=== PATIENT | male | born 1955 | race Caucasian/White ===

== ENCOUNTER 2018-06-13 10:17 | Day surgery (SDC) | payer BC ==
[2018-06-12 08:32] VITALS: BMI 32.5
[2018-06-13] MEDS ORDERED: PROPOFOL 20 ML ONE ×3 (10:43→11:12)
[2018-06-13 11:52] VITALS: PULSE 89; TEMP 98.1
[2018-06-13 12:10] VITALS: BP 126/74
--- NOTE | 2018-06-18 14:42 | PATH ---
Surgical Pathology Report Patient Name: SOCORRO PETERS [facility]. Rec. #: [id number] /Age/Gender: 1955 (Age: 63) / M Account: [id number] Location: [facility] Taken: 06/13/2018 Received: 06/13/2018 Reported: 06/18/2018 Physicians: Venecia Garcia M.D. Specimen(s) Received A: BX SECOND PORTION OF DUODENUM B: BX DUODENAL BULB THICK FOLD C: BX ANTRUM D: BX FUNDUS POLYP E: BX GE JUNCTION F: BX TRANSVERSE COLON ERYTHEMATOUS PATCH G: BX 50 CM ERYTHMATAS PATCH H: SIGMOID COLON R/O COLITIS Clinical History GI bleed Postoperative diagnosis: Gastric, duodenitis, fundus polyp, duodenal polyp, hemorrhoids, diverticuli, colitis Final Diagnosis A. SECOND PORTION OF DUODENUM, BIOPSY: MODERATE CHRONIC DUODENITIS. B. DUODENAL BULB, THICK FOLD, BIOPSY: DUODENAL MUCOSA SHOWING GASTRIC HETEROTOPIA WITH MODERATE CHRONIC DUODENITIS. C. ANTRUM, BIOPSY: MODERATE CHRONIC GASTRITIS. IMMUNOSTAIN IS NEGATIVE FOR H PYLORI ORGANISMS. D. FUNDUS POLYP, BIOPSY: GASTIC FUNDIC GLAND POLYP. IMMUNOSTAIN IS NEGATIVE FOR H PYLORI ORGANISMS. E. GE JUNCTION, BIOPSY: GASTRIC CARDIA-TYPE MUCOSA SHOWING MILD CHRONIC INFLAMMATION. NO ESOPHAGEAL (SQUAMOUS) MUCOSA IS IDENTIFIED. NEGATIVE FOR INTESTINALMETAPLASIA. F. TRANSVERSE COLON ERYTHEMATOUS PATCH, BIOPSY: MODERATE CHRONIC ACTIVE COLITIS WITH MILD CRYPT ARCHITECTURAL DISTORTION. (SEE NOTE) NEGATIVE FOR DYSPLASIA. G. ERYTHEMATOUS PATCH AT 50 CM, BIOPSY: FOCAL ACTIVE COLITIS. (SEE NOTE) H. SIGMOID COLON R/O COLITIS, BIOPSY: MODERATE CHRONIC ACTIVE COLITIS WITH MILD CRYPT ARCHITECTURAL DISTORTION. (SEE NOTE). NEGATIVE FOR DYSPLASIA. Note: The findings in specimens F, G and H are compatible with chronic inflammatory bowel disease in the appropriate clinical setting. Correlation with clinical findings and appropriate follow-up is suggested. Electronically Signed Kristine Vance M.D. Gross Description A. Received in formalin, labeled "second portion of duodenum" is a goff, irregular portion of soft tissue measuring 0.4 cm. in greatest dimension. The specimen is submitted in toto in one cassette. B. Received in formalin, labeled "duodenal bulb polyp" is a goff, irregular portion of soft tissue measuring 0.5 cm. in greatest dimension. The specimen is submitted in toto in one cassette. C. Received in formalin, labeled "antrum" is a goff, irregular portion of soft tissue measuring 0.5 cm. in greatest dimension. The specimen is submitted in toto in one cassette. D. Received in formalin, labeled "fundus polyp" is a goff, irregular portion of soft tissue measuring 0.4 cm. in greatest dimension. The specimen is submitted in toto in one cassette. E. Received in formalin, labeled "GE junction" is a goff, irregular portion of soft tissue measuring 0.4 cm. in greatest dimension. The specimen is submitted in toto in one cassette. F. Received in formalin, labeled "transverse colon erythematous patch" is a goff, irregular portion of soft tissue measuring 0.2 cm. in greatest dimension. The specimen is submitted in toto in one cassette. G. Received in formalin, labeled "erythematous patch at 50 cm" is a goff, irregular portion of soft tissue measuring 0.4 cm. in greatest dimension. The specimen is submitted in toto in one cassette. H. Received in formalin, labeled "sigmoid colon r/o colitis" are 2 goff, irregular portions of soft tissue measuring 0.2 and 0.4 cm. in greatest dimension. The specimens are submitted in toto in one cassette. 06/14/2018 saudi06/14/2018
== END 2018-06-13 12:15 | disposition home or self-care (01) ==
LOC: FASU-ENDO 10:17
PROVIDERS: ATTEND Internal Medicine Gastroenterology
PROC: 0DB68ZX Excision of Stomach, Via Natural or Artificial Opening Endoscopic, Diagnostic (ICD-10-PCS; 2018-06-13)
PROC: 0DB48ZX Excision of Esophagogastric Junction, Via Natural or Artificial Opening Endoscopic, Diagnostic (ICD-10-PCS; 2018-06-13)
PROC: 0DBN8ZX Excision of Sigmoid Colon, Via Natural or Artificial Opening Endoscopic, Diagnostic (ICD-10-PCS; 2018-06-13)
PROC: 0DBL8ZX Excision of Transverse Colon, Via Natural or Artificial Opening Endoscopic, Diagnostic (ICD-10-PCS; 2018-06-13)
PROC: 0DB98ZX Excision of Duodenum, Via Natural or Artificial Opening Endoscopic, Diagnostic (ICD-10-PCS; principal; 2018-06-13 10:30)
DX: K29.50 Unspecified chronic gastritis without bleeding (principal); K29.80 Duodenitis without bleeding; K31.7 Polyp of stomach and duodenum; K52.9 Noninfective gastroenteritis and colitis, unspecified; K64.9 Unspecified hemorrhoids; K57.30 Diverticulosis of large intestine without perforation or abscess without bleeding
CPT/HCPCS: 88305-TC; 88342-TC

== ENCOUNTER 2019-01-22 10:25 | Inpatient (IN) | payer BC ==
[2019-01-07 12:24] VITALS: BMI 30.7
--- NOTE | 2019-01-22 08:07 | HP ---
Satellite [facility] - Chief Complaint Chief Complaint: left hip pain - Past Medical History Allergies/Adverse Reactions: Allergies Allergy/AdvReac Type Severity Reaction Status Date / Time No Known Allergies Allergy Verified 06/11/18 14:24 - Current Medications Current Medications: Home Medications Medication Instructions Recorded Folic Acid - 2 mg PO DAILY 07/27/12 Multivitamin with Minerals 1 each PO DAILY 07/27/12 [Multiple Vitamin] Rosuvastatin Calcium [Crestor] 10 mg PO DAILY 07/27/12 Budesonide/Formeterol Fumarate 1 inh PO BID PRN 06/12/18 [SYMBICORT 80/4.5mcg -] Rivaroxaban [Xarelto] 20 mg PO DAILY 06/12/18 Zolpidem Tartrate [Ambien] 10 mg PO HS PRN 06/12/18 Amlodipine Besylate [Norvasc -] 5 mg PO DAILY 01/09/19 Fluticasone/Umeclidin/Vilanter 1 each IH DAILY 01/09/19 [Trelegy Ellipta 100-62.5-25] Mesalamine [Lialda] 1.2 gm PO DAILY 01/09/19 Naproxen Sodium [Aleve] 220 mg PO TID 01/09/19 Phentermine HCl 37.5 mg PO DAILY 01/09/19 Propranolol HCl [Propranolol HCl 120 mg PO DAILY 01/09/19 ER] Sennosides/Docusate Sodium [Senna 1 each PO BID 01/09/19 Plus Tablet] Silodosin [Rapaflo] 8 mg PO DAILY 01/09/19 Tofacitinib Citrate [Xeljanz] 10 mg PO BID 01/09/19 Satellite Physical Exam - Physical Examination General Appearance: Well Nourished, Well Developed, Alert & Oriented x3 ENT: Clear Lung: Normal air movement Heart: Regular rate & rhythm Extremities: Other (left hip- + ttp, decr rom, nvi, xrays show grade 4 hip djd) Neurological: Intact, Alert, Oriented Satellite Impression/Plan - Impression/Plan Impression: left hip djd Operative Procedure: left maeve thr Date to be Performed: 01/22/19
[2019-01-22] MEDS ORDERED: LIDOCAINE HCL/PF 2% SDV 5ML VIAL ONE (10:27)
[2019-01-22] MEDS ORDERED: ONDANSETRON 4 MG/2 ML VIAL ONE (10:27)
[2019-01-22] MEDS ORDERED: DEXAMETHASONE SOD PHOSPHATE 4 MG/1 ML VIAL ONE ×2 (10:27→12:42)
[2019-01-22] MEDS ORDERED: GABAPENTIN 300 MG CAPSULE (FP) PO ONE ×2 (10:35→10:45)
[2019-01-22] MEDS ORDERED: CELECOXIB 200 MG CAPSULE PO ONE ×2 (10:35→10:45)
[2019-01-22] MEDS ORDERED: CEFAZOLIN 2 GM in DEXTROSE 5%-WATER - 50 ML IVPB ONE (10:35)
[2019-01-22] MEDS ORDERED: oxyCODONE HCL 10 MG SUSTAINED ACTING TABLET PO ONE ×2 (10:35→10:45)
[2019-01-22] MEDS ORDERED: TRANEXAMIC ACID 1000 MG/10 ML VIAL IVPUSH ONE (10:35)
[2019-01-22] MEDS ORDERED: PHENYLEPHRINE HCL 10 MG/1 ML SINGLE DOSE VIAL ONE (10:41)
[2019-01-22] MEDS ORDERED: PROPOFOL 20 ML ONE (11:05)
[2019-01-22] MEDS ORDERED: MIDAZOLAM HCL 2 MG/2 ML SINGLE DOSE VIAL ONE ×2 (11:09→12:37)
[2019-01-22] MEDS ORDERED: DEXAMETHASONE SOD PHOSPHATE/PF 10 MG/ML SDV ONE (11:10)
[2019-01-22] MEDS ORDERED: BUPIVACAINE HCL/PF 0.5% (5MG/ML) 10 ML VIAL ONE (11:10)
[2019-01-22] MEDS ORDERED: ONDANSETRON 4 MG/2 ML VIAL IVPUSH PRN ×2 (11:28→14:06)
[2019-01-22] MEDS ORDERED: MAGNESIUM HYDROX 2400MG/30ML ORAL SUSPENSION 30 ML CUP PO PRN (11:28)
[2019-01-22] MEDS ORDERED: MAG HYDROX/AL HYDROX/SIMETH 30 ML UNIT-DOSE CUP PO PRN (11:28)
[2019-01-22] MEDS ORDERED: LACTATED RINGERS SOLUTION 1,000 ML IV SCH ×2 (11:30→14:15)
[2019-01-22] MEDS ORDERED: ceFAZolin SODIUM 1 GM VIAL ONE (11:58)
[2019-01-22] MEDS ORDERED: VANCOMYCIN 1,000 MG VIAL (RESTRICTED TO ID ONLY) ONE (11:58)
[2019-01-22] MEDS ORDERED: KETOROLAC TROMETHAMINE 30 MG/1 ML VIAL ONE (12:42)
[2019-01-22] MEDS ORDERED: ePHEDrine SULFATE 50 MG/1 ML AMPULE ONE (13:10)
[2019-01-22] MEDS ORDERED: VANCOMYCIN 1,000 MG VIAL (RESTRICTED TO ID ONLY) IVPB ONE (13:28)
--- NOTE | 2019-01-22 13:49 | OP ---
Operative Note - Note: Operative Date: 01/22/19 (carlos) Pre-Operative Diagnosis: left hip djd Operation: left maeve thr Post-Operative Diagnosis: Same as Pre-op Surgeon: Jd King Rental Coordinator: Lloyd Hernández Anesthesiologist/MARINE SERVICE MANAGER: Jermain Acuna Anesthesia: Spinal, Local Specimens Removed: femoral head Estimated Blood Loss (mls): 100 Operative Report Dictated: Yes
[2019-01-22] MEDS ORDERED: oxyCODONE HCL 5 MG TABLET PO PRN (14:06)
[2019-01-22] MEDS: ACETAMINOPHEN 1000 MG/100 ML VIAL (NON FORMULARY) IVPB ONE ×2 (14:18→15:20)
[2019-01-22] MEDS ORDERED: ALBUTEROL SO4 2.5/IPRATROPIUM 0.5 INH SOL 3 ML VIAL.NEB. NEB PRN (18:22)
--- NOTE | 2019-01-22 18:22 | PN ---
Progress Note, Physician Chief Complaint: PATIENT SEEN POST OP LEFT HIP REPLACEMENT H/O DVT CHRONIC, COPD, HTN, OBESITY, RA, BPH, CONSTIPATION, HTN. AWAKE ALERT NAD EATING DINNER - Current Medication List Current Medications: Active Medications Al Hydroxide/Mg Hydroxide (Mylanta Oral Suspension -) 30 ml PO Q4H PRN PRN Reason: DYSPEPSIA Amlodipine Besylate (Norvasc -) 5 mg PO DAILY [facility] Budesonide/Formoterol Fumarate (Symbicort 80/4.5mcg -) 1 puff IH BID PRN PRN Reason: ASTHMA Fentanyl (Sublimaze Injection -) 50 mcg IVPUSH Q5M PRN PRN Reason: PAIN-PACU ORDER X 4 DOSES ONLY Cefazolin Sodium/Dextrose (Ancef 2 Gm Premixed Ivpb -) 2 gm in 50 mls @ 100 mls /hr IVPB Q8H [facility] Stop: 01/23/19 04:29 Lactated Ringer's (Lactated Ringers Solution) 1,000 mls @ 125 mls/hr IV ASDIR [facility] Stop: 01/23/19 06:00 Last Admin: 01/22/19 15:19 Dose: Not Given Lactated Ringer's (Lactated Ringers Solution) 1,000 mls @ 75 mls/hr IV ASDIR [facility] Last Admin: 01/22/19 15:20 Dose: Not Given Magnesium Hydroxide (Milk Of Magnesia -) 30 ml PO PRN PRN PRN Reason: CONSTIPATION Multivitamins/Minerals (Theragran-M) 1 each PO DAILY [facility] Ondansetron HCl (Zofran Injection) 4 mg IVPUSH Q6H PRN PRN Reason: NAUSEA Ondansetron HCl (Zofran Injection) 4 mg IVPUSH Q6H PRN PRN Reason: NAUSEA AND/OR VOMITING Oxycodone HCl (Roxicodone -) 10 mg PO Q4H PRN PRN Reason: PAIN LEVEL 6-10 Oxycodone HCl (Roxicodone -) 5 mg PO Q4H PRN PRN Reason: PAIN LEVEL 1-5 Pantoprazole Sodium (Protonix -) 40 mg PO DAILY [facility] Propranolol HCl (Inderal La -) 120 mg PO DAILY [facility] Rivaroxaban (Xarelto) 20 mg PO DAILY [facility] Rosuvastatin Calcium (Crestor -) 10 mg PO HS [facility] Senna/Docusate Sodium (Pericolace -) 1 tablet PO BID [facility] Tamsulosin HCl (Flomax -) 0.4 mg PO DAILY@0830 [facility] Zolpidem Tartrate (Ambien -) 10 mg PO HS PRN PRN Reason: INSOMNIA - Objective Vital Signs: Vital Signs Temperature 97.4 F L 01/22/19 16:54 Pulse Rate 86 01/22/19 16:54 Respiratory Rate 18 01/22/19 16:54 Blood Pressure 126/73 01/22/19 16:54 O2 Sat by Pulse Oximetry (%) 96 01/22/19 16:54 Constitutional: Yes: No Distress Eyes: Yes: WNL HENT: Yes: WNL Neck: Yes: WNL Cardiovascular: Yes: Regular Rate and Rhythm Respiratory: Yes: Regular, On Nasal O2 Gastrointestinal: Yes: WNL, Abdomen, Obese Genitourinary: Yes: Other Musculoskeletal: Yes: Other Extremities: Yes: WNL Edema: No Peripheral Pulses WNL: Yes Integumentary: Yes: WNL Wound/Incision: Yes: Dressing Dry and Intact Neurological: Yes: WNL ...Motor Strength: LLE Psychiatric: Yes: WNL Problem List - Problems (1) Rheumatoid arthritis Code(s): M06.9 - RHEUMATOID ARTHRITIS, UNSPECIFIED (2) Status post left hip replacement Code(s): Z96.642 - PRESENCE OF LEFT ARTIFICIAL HIP JOINT (3) Hypertension Code(s): I10 - ESSENTIAL (PRIMARY) HYPERTENSION (4) DVT (deep venous thrombosis) Code(s): I82.409 - ACUTE EMBOLISM AND THOMBOS UNSP DEEP VN UNSP LOWER EXTREMITY (5) Obesity Code(s): E66.9 - OBESITY, UNSPECIFIED (6) COPD (chronic obstructive pulmonary disease) Code(s): J44.9 - CHRONIC OBSTRUCTIVE PULMONARY DISEASE, UNSPECIFIED (7) Constipation Code(s): K59.00 - CONSTIPATION, UNSPECIFIED (8) BPH (benign prostatic hyperplasia) Code(s): N40.0 - BENIGN PROSTATIC HYPERPLASIA WITHOUT LOWER URINRY TRACT SYMP Assessment/Plan S/P LEFT HIP REPLACEMENT PAIN CONTROL DVT PROPHYLAXIS 02 SUPPORT NEBS PRN ORTHOPEDIC AND PT EVAL NON-WEIGHT BEARING LEFT LEG UNTIL CLEARED BY ORTHOPEDICS. LABS IN AM MIRALAX DAILY
[2019-01-22] MEDS: CEFAZOLIN 2 GM/D5W 2 GM/50 ML ML IVPB SCH (20:35)
--- NOTE | 2019-01-22 21:06 | SPEC ---
DATE OF OPERATION: 01/22/2019 PREOPERATIVE DIAGNOSIS: Degenerative joint disease, left hip. POSTOPERATIVE DIAGNOSIS: Degenerative joint disease, left hip. PROCEDURE PERFORMED: Left total hip replacement with robotic-assisted navigation (MAKOplasty). SURGICAL ATTENDING: Jd King MD BRICK POINTER: GIAN Harris ANESTHESIA: Regional and spinal. CLOSURE: A Leonardo hip system with a number 7 Accolade II femoral stem ceramic 36 mm + 2.5 femoral head, a Trident II 54-mm press-fit acetabulum. Number 1 Vicryl for fascia, 0 and 2-0 subcutaneous, 3-0 V-Loc for skin with skin glue, 4-0 undyed Vicryl for pin sites. ESTIMATED BLOOD LOSS: Less than 100 mL. COMPLICATIONS: None. CONDITION: To the recovery room in stable condition. DESCRIPTION OF PROCEDURE: The patient was taken to the operating room on January 22, 2019. General and regional anesthesia was administered by the anesthesiologist. IV Kefzol and TXA were administered prophylactically prior to the case. The patient was placed in the lateral decubitus position will all prominences well-padded. The left hip area was prepped and draped in the usual sterile fashion. Using 3 small stab incisions over the iliac crest, 3 threaded pins were drilled in power fashion through the 2 tables of the crest. These pins were fastened and the navigation array for the Boby navigation system. Next, a 12- to 15-cm curved longitudinal incision over the posterolateral aspect of the greater trochanter was incised. Hemostasis was achieved with Bovie cautery. Sharp dissection was carried down to level of the fascia. The fascia was opened the entire length of the incision, spreading the fibers of the gluteus meaghan in the direction of origin. A Charnley retractor was placed in this layer. Care was taken not to impale the sciatic nerve. The short external rotators were detached off the insertion of the greater trochanter and peeled off the capsule. A posterior capsulotomy was then performed. A check point was malleted into the greater trochanter and a point on the inferior pole of the patella was obtained as well. These 2 points were used to assess the preoperative offset and limb lengths of the hip. The hip was then dislocated. The femoral neck was then osteotomized down to the appropriate level as directed by the navigation device. Anterior and posterior retractors were placed, exposing the acetabulum. A circumferential labral excision was performed. A check point was malleted into the acetabulum as well. Multiple sites inside the acetabulum and around the rim were utilized to register the acetabulum with the navigation device. An excellent registration of less than 0.5 mm was obtained. The hip was then reamed with the appropriate reamer down to the appropriate depth, with the appropriate orientation and version as assessed on our preoperative plan for this patient. The reamer was removed and the acetabulum was inspected to have good bleeding surfaces throughout. The real acetabular cup was then malleted down into place, with the holes in the appropriate position, until an excellent fixation was obtained. No screws were necessary. The navigation device ensured appropriate orientation and version, with the depth as predetermined. The appropriate liner was then clipped into place. Attention was directed to the femur. The proximal femur was prepared by use a box chisel, a canal finder and serial broaches until the broach achieved excellent rigidity in the proximal femur with the appropriate version being applied. A calcar planer was used to smooth off the calcar flush with the trial components. A trial reduction with the appropriate head was done, and the hip was reduced. The hip was taken through a range of motion from full extension with external rotation to marked flexion and was stable at 90 degrees of flexion. It was stable to marked abduction and internal rotation, with a positive hang test and negative telescoping. Limb lengths were ascertained visually as well as with the navigation device to be within the targeted range for this patient. The trial component was removed. The real component was then malleted into place. The head was cold welded to the trunnion, and the hip was reduced. Range of motion, stability and limb lengths were as described in the trial component. Then the hip was pulse antibiotic irrigated. Vancomycin powder was placed in the hip joint. The capsule was closed. The fascia was then closed as well using number 1 Vicryl interrupted suture, 0 and 2-0 subcutaneous, and 3-0 V-Loc for the skin. 4-0 undyed Vicryl was used to close the pin sites after the pins were removed. All check points were also removed. Sterile Aquacel dressing was applied. The patient was awakened from anesthesia and transferred into the supine position. Bilateral SCDs and an abduction pillow were placed. X-rays revealed excellent position of the components. The patient was transferred to the recovery room in stable condition, with no complications. Estimated blood loss was less than 100 mL. Rahul MARTINEZ/[id number]
[2019-01-22] MEDS: ZOLPIDEM TARTRATE 5 MG TABLET PO PRN (21:59)
[2019-01-22] MEDS: SENNOSIDES/DOCUSATE COMBO (SENNA PLUS) TABLET (UD) PO SCH (21:59)
[2019-01-22] MEDS: BUDESONIDE/FORMETEROL FUMARATE 80/4.5 mcg INHALER IH SCH (21:59)
[2019-01-22] MEDS ORDERED: TOFACITINIB CITRATE 10 MG PO SCH (22:00)
[2019-01-23] MEDS: CEFAZOLIN 2 GM/D5W 2 GM/50 ML ML IVPB SCH (05:44)
[2019-01-23 07:50] LABS: HEMATOCRIT 30.5 % (35.4-49); HEMOGLOBIN 9.8 GM/dl (11.7-16.9); MCH 29.2 pg (25.7-33.7); MCHC 32.2 g/dl (32.0-35.9); MEAN CELL VOLUME 90.7 fl (80-96); MEAN PLT VOLUME 7.4 fl (7.5-11.1); PLATELET COUNT 276 K/MM3 (134-434); RBC 3.36 M/mm3 (4.00-5.60); WHITE BLOOD COUNT 16.6 K/mm3 (4.0-10.8)
--- NOTE | 2019-01-23 08:04 | PN ---
Progress Note, Physician - Current Medication List Current Medications: Active Medications Al Hydroxide/Mg Hydroxide (Mylanta Oral Suspension -) 30 ml PO Q4H PRN PRN Reason: DYSPEPSIA Albuterol/Ipratropium (Duoneb -) 1 amp NEB Q6H PRN PRN Reason: SHORTNESS OF BREATH Amlodipine Besylate (Norvasc -) 5 mg PO DAILY [facility] Budesonide/Formoterol Fumarate (Symbicort 80/4.5mcg -) 1 puff IH BID [facility] Last Admin: 01/22/19 21:59 Dose: Not Given Fentanyl (Sublimaze Injection -) 50 mcg IVPUSH Q5M PRN PRN Reason: PAIN-PACU ORDER X 4 DOSES ONLY Lactated Ringer's (Lactated Ringers Solution) 1,000 mls @ 75 mls/hr IV ASDIR [facility] Last Admin: 01/22/19 15:20 Dose: Not Given Magnesium Hydroxide (Milk Of Magnesia -) 30 ml PO PRN PRN PRN Reason: CONSTIPATION Multivitamins/Minerals (Theragran-M) 1 each PO DAILY [facility] Ondansetron HCl (Zofran Injection) 4 mg IVPUSH Q6H PRN PRN Reason: NAUSEA Ondansetron HCl (Zofran Injection) 4 mg IVPUSH Q6H PRN PRN Reason: NAUSEA AND/OR VOMITING Oxycodone HCl (Roxicodone -) 10 mg PO Q4H PRN PRN Reason: PAIN LEVEL 6-10 Oxycodone HCl (Roxicodone -) 5 mg PO Q4H PRN PRN Reason: PAIN LEVEL 1-5 Pantoprazole Sodium (Protonix -) 40 mg PO DAILY [facility] Polyethylene Glycol (Miralax (For Daily Use) -) 17 gm PO DAILY [facility] Propranolol HCl (Inderal La -) 120 mg PO DAILY [facility] Rivaroxaban (Xarelto) 20 mg PO DAILY [facility] Rosuvastatin Calcium (Crestor -) 10 mg PO HS [facility] Senna/Docusate Sodium (Pericolace -) 1 tablet PO BID [facility] Last Admin: 01/22/19 21:59 Dose: 1 tablet Tamsulosin HCl (Flomax -) 0.4 mg PO DAILY@0830 [facility] Zolpidem Tartrate (Ambien -) 10 mg PO HS PRN PRN Reason: INSOMNIA Last Admin: 01/22/19 21:59 Dose: 10 mg - Objective Vital Signs: Vital Signs Temperature 97.9 F 01/23/19 06:35 Pulse Rate 83 01/23/19 06:35 Respiratory Rate 18 01/23/19 06:35 Blood Pressure 140/73 01/23/19 06:35 O2 Sat by Pulse Oximetry (%) 93 L 01/23/19 06:36 Cardiovascular: Yes: Regular Rate and Rhythm Respiratory: Yes: Regular, CTA Bilaterally Gastrointestinal: Yes: Normal Bowel Sounds, Soft. No: Tenderness Wound/Incision: Yes: Dressing Dry and Intact Problem List - Problems (1) Status post left hip replacement Assessment/Plan: -per ortho -pt Code(s): Z96.642 - PRESENCE OF LEFT ARTIFICIAL HIP JOINT (2) BPH (benign prostatic hyperplasia) Assessment/Plan: Continue with flomax monitor Code(s): N40.0 - BENIGN PROSTATIC HYPERPLASIA WITHOUT LOWER URINRY TRACT SYMP (3) COPD (chronic obstructive pulmonary disease) Assessment/Plan: stable monitor Code(s): J44.9 - CHRONIC OBSTRUCTIVE PULMONARY DISEASE, UNSPECIFIED (4) Hypertension Assessment/Plan: continue wit norvasc and inderal Code(s): I10 - ESSENTIAL (PRIMARY) HYPERTENSION (5) Rheumatoid arthritis Code(s): M06.9 - RHEUMATOID ARTHRITIS, UNSPECIFIED (6) DVT (deep venous thrombosis) Assessment/Plan: on xarelto Code(s): I82.409 - ACUTE EMBOLISM AND THOMBOS UNSP DEEP VN UNSP LOWER EXTREMITY
[2019-01-23 08:16] LABS: ALBUMIN 3.1 g/dl (3.4-5.0); BILIRUBIN,TOTAL 0.7 mg/dl (0.2-1); CALCIUM 8.3 mg/dl (8.5-10); CREATININE 0.7 mg/dl (0.55-1.3); PHOSPHOROUS 2.2 mg/dl (2.5-4.9); POTASSIUM 4.2 mmol/L (3.5-5.1)
[2019-01-23] MEDS ORDERED: PT OWN MED DRAWER 7, Y5N ONE (09:28)
[2019-01-23] MEDS: MULTIVITAMINS THER W-MINERALS COMBO TABLET (FP) PO SCH (09:40)
[2019-01-23] MEDS: amLODIPine BESYLATE 5 MG TABLET (FP) PO SCH (09:40)
[2019-01-23] MEDS: TAMSULOSIN HCL 0.4 MG CAP PO SCH (09:41)
[2019-01-23] MEDS: POLYETHYLENE GLYCOL 3350 119 GM BTL PO SCH (09:41)
[2019-01-23] MEDS: PANTOPRAZOLE 40 MG TABLET (FP) PO SCH (09:42)
[2019-01-23] MEDS: SENNOSIDES/DOCUSATE COMBO (SENNA PLUS) TABLET (UD) PO SCH ×2 (09:42→21:16)
[2019-01-23] MEDS: RIVAROXABAN 10 MG TABLET PO SCH (09:43)
[2019-01-23] MEDS ORDERED: PATIENT'S OWN MEDICATION (NON-FORMULARY) (Mesalamine [Lialda] 1.2 GM) PO SCH (10:00)
[2019-01-23] MEDS ORDERED: PATIENT'S OWN MEDICATION (NON-FORMULARY) (Silodosin [Rapaflo] 8 MG) PO SCH (10:00)
[2019-01-23] MEDS: BUDESONIDE/FORMETEROL FUMARATE 80/4.5 mcg INHALER IH SCH ×2 (10:11→21:54)
--- NOTE | 2019-01-23 10:28 | PN ---
Progress Note (short form) - Note Progress Note: Ortho Pt seen and examined s/p left maeve thr pod #1 Selected Entries 01/23/19 06:35 Temperature 97.9 F Pulse Rate 83 Respiratory 18 Rate Blood Pressure 140/73 Laboratory Tests 01/23/19 07:20 WBC 16.6 H Hgb 9.8 L Hct 30.5 L Plt Count 276 dressing c/d/i, calf soft, nt nvi a/p PT hip precautions dvt ppx pain control d/c home tomorrow if stable
--- NOTE | 2019-01-23 14:11 | PN ---
Progress Note (short form) - Note Progress Note: Anesthesia post op/Pain Pt seen and examined S:Alert and awake O: Vital Signs Temperature 97.9 F 01/23/19 06:35 Pulse Rate 83 01/23/19 06:35 Respiratory Rate 18 01/23/19 06:35 Blood Pressure 140/73 01/23/19 06:35 O2 Sat by Pulse Oximetry (%) 93 L 01/23/19 06:36 CBC, BMP 01/23/19 07:20 01/23/19 07:20 A/P: Current Active Problems BPH (benign prostatic hyperplasia) (Acute) COPD (chronic obstructive pulmonary disease) (Acute) Constipation (Acute) DVT (deep venous thrombosis) (Acute) Hypertension (Acute) Obesity (Acute) Rheumatoid arthritis (Acute) Status post left hip replacement (Acute) Doing well post op Continue current care Andrew Jones MD
[2019-01-23] MEDS: oxyCODONE HCL 5 MG TABLET PO PRN ×2 (15:08→20:10)
[2019-01-23] MEDS ORDERED: ROSUVASTATIN CA 10 MG TABLET (FP) PO SCH (22:00)
[2019-01-24] MEDS: ZOLPIDEM TARTRATE 5 MG TABLET PO PRN (01:25)
[2019-01-24 06:49] VITALS: BP 130/63; PULSE 80; TEMP 98.5
--- NOTE | 2019-01-24 07:45 | PN ---
Progress Note, Physician History of Present Illness: c/o cough no cp - Current Medication List Current Medications: Active Medications Al Hydroxide/Mg Hydroxide (Mylanta Oral Suspension -) 30 ml PO Q4H PRN PRN Reason: DYSPEPSIA Albuterol/Ipratropium (Duoneb -) 1 amp NEB RQID [facility] Amlodipine Besylate (Norvasc -) 5 mg PO DAILY [facility] Last Admin: 01/23/19 09:40 Dose: 5 mg Budesonide/Formoterol Fumarate (Symbicort 80/4.5mcg -) 1 puff IH BID [facility] Last Admin: 01/23/19 21:54 Dose: Not Given Fentanyl (Sublimaze Injection -) 50 mcg IVPUSH Q5M PRN PRN Reason: PAIN-PACU ORDER X 4 DOSES ONLY Lactated Ringer's (Lactated Ringers Solution) 1,000 mls @ 75 mls/hr IV ASDIR [facility] Last Admin: 01/22/19 15:20 Dose: Not Given Magnesium Hydroxide (Milk Of Magnesia -) 30 ml PO PRN PRN PRN Reason: CONSTIPATION Last Admin: 01/23/19 15:07 Dose: 30 ml Multivitamins/Minerals (Theragran-M) 1 each PO DAILY [facility] Last Admin: 01/23/19 09:40 Dose: 1 each Ondansetron HCl (Zofran Injection) 4 mg IVPUSH Q6H PRN PRN Reason: NAUSEA Ondansetron HCl (Zofran Injection) 4 mg IVPUSH Q6H PRN PRN Reason: NAUSEA AND/OR VOMITING Oxycodone HCl (Roxicodone -) 10 mg PO Q4H PRN PRN Reason: PAIN LEVEL 6-10 Last Admin: 01/23/19 20:10 Dose: 10 mg Oxycodone HCl (Roxicodone -) 5 mg PO Q4H PRN PRN Reason: PAIN LEVEL 1-5 Pantoprazole Sodium (Protonix -) 40 mg PO DAILY [facility] Last Admin: 01/23/19 09:42 Dose: 40 mg Polyethylene Glycol (Miralax (For Daily Use) -) 17 gm PO DAILY [facility] Last Admin: 01/23/19 09:41 Dose: 17 gm Propranolol HCl (Inderal La -) 120 mg PO DAILY [facility] Last Admin: 01/23/19 09:39 Dose: 120 mg Rivaroxaban (Xarelto) 20 mg PO DAILY [facility] Last Admin: 01/23/19 09:43 Dose: 20 mg Rosuvastatin Calcium (Crestor -) 10 mg PO HS [facility] Last Admin: 01/23/19 21:16 Dose: 10 mg Senna/Docusate Sodium (Pericolace -) 1 tablet PO BID [facility] Last Admin: 01/23/19 21:16 Dose: 1 tablet Tamsulosin HCl (Flomax -) 0.4 mg PO DAILY@0830 [facility] Last Admin: 01/23/19 09:41 Dose: 0.4 mg Zolpidem Tartrate (Ambien -) 10 mg PO HS PRN PRN Reason: INSOMNIA Last Admin: 01/24/19 01:25 Dose: 10 mg - Objective Vital Signs: Vital Signs Temperature 98.5 F 01/24/19 06:00 Pulse Rate 80 01/24/19 06:00 Respiratory Rate 16 01/24/19 06:00 Blood Pressure 130/63 01/24/19 06:00 O2 Sat by Pulse Oximetry (%) 88 L 01/24/19 06:00 Cardiovascular: Yes: S1, S2 Respiratory: Yes: Regular, Diminished, Rhonchi Gastrointestinal: Yes: Normal Bowel Sounds, Soft Problem List - Problems (1) Status post left hip replacement Assessment/Plan: -per ortho -pt Code(s): Z96.642 - PRESENCE OF LEFT ARTIFICIAL HIP JOINT (2) BPH (benign prostatic hyperplasia) Assessment/Plan: Continue with flomax monitor Code(s): N40.0 - BENIGN PROSTATIC HYPERPLASIA WITHOUT LOWER URINRY TRACT SYMP (3) COPD (chronic obstructive pulmonary disease) Assessment/Plan: stable monitor nebs and monitor response--follow up pulse ox cxr Code(s): J44.9 - CHRONIC OBSTRUCTIVE PULMONARY DISEASE, UNSPECIFIED (4) Hypertension Assessment/Plan: continue wit norvasc and inderal Code(s): I10 - ESSENTIAL (PRIMARY) HYPERTENSION (5) Rheumatoid arthritis Code(s): M06.9 - RHEUMATOID ARTHRITIS, UNSPECIFIED (6) DVT (deep venous thrombosis) Assessment/Plan: on xarelto Code(s): I82.409 - ACUTE EMBOLISM AND THOMBOS UNSP DEEP VN UNSP LOWER EXTREMITY
[2019-01-24] MEDS ORDERED: ALBUTEROL SO4 2.5/IPRATROPIUM 0.5 INH SOL 3 ML VIAL.NEB. NEB SCH (08:00)
[2019-01-24 08:22] LABS: HEMATOCRIT 29.6 % (35.4-49); HEMOGLOBIN 9.3 GM/dl (11.7-16.9); MCH 28.6 pg (25.7-33.7); MCHC 31.5 g/dl (32.0-35.9); MEAN CELL VOLUME 90.7 fl (80-96); MEAN PLT VOLUME 7.5 fl (7.5-11.1); PLATELET COUNT 289 K/MM3 (134-434); RBC 3.26 M/mm3 (4.00-5.60); RDW 17.5 % (11.9-15.9); WHITE BLOOD COUNT 16.7 K/mm3 (4.0-10.8)
--- NOTE | 2019-01-24 08:25 | PN ---
Progress Note (short form) - Note Progress Note: Ortho Pt seen and examined s/p left maeve thr pod #2 Selected Entries 01/24/19 06:00 Temperature 98.5 F Pulse Rate 80 Respiratory 16 Rate Blood Pressure 130/63 Laboratory Tests 01/24/19 07:05 WBC Pending Hgb Pending Hct Pending Plt Count Pending dressing c/d/i, calf soft, nt nvi a/p PT hip precautions dvt ppx pain control chest xray ordered by DR. Milian- f/u if clear d/c home today
--- NOTE | 2019-01-24 08:26 | DS ---
Physical Examination Vital Signs: Vital Signs Temperature 98.5 F 01/24/19 06:00 Pulse Rate 80 01/24/19 06:00 Respiratory Rate 16 01/24/19 06:00 Blood Pressure 130/63 01/24/19 06:00 O2 Sat by Pulse Oximetry (%) 88 L 01/24/19 06:00 Discharge Summary Reason For Visit: OSTEOARTHRITIS Current Active Problems BPH (benign prostatic hyperplasia) (Acute) COPD (chronic obstructive pulmonary disease) (Acute) Constipation (Acute) DVT (deep venous thrombosis) (Acute) Hypertension (Acute) Obesity (Acute) Rheumatoid arthritis (Acute) Status post left hip replacement (Acute) Procedures: Principal: s/p left thr Hospital Course: admitted for elective left maeve thr, uneventful post-op, stable for d/c Condition: Good - Instructions Diet, Activity, Other Instructions: Post-op Instructions-Total Hip Replacement Call the office for a follow-up appointment in 1 week - [phone] Anae Tran. Pain medication was sent into your pharmacy. Apply Graduated Compression Stockings (TEDs) to both lower extremities- remove daily for hygiene ONLY Apply Sequential Compression Device (SCDs) to both Lower extremities remove for PT and hygiene ONLY Apply cold packs to affected area for 15 minutes every 2 hours. Physical Therapist will come to your home for the first 5 days. You will be set up with outpatient PT at your first post-operative visit. Patient may ambulate as tolerated-encourage self care (at least every 2-3 hours while awake) with walker or cane Maintain Aquacel (waterproof) dressing to operative wound (will be removed by surgeon at first office visit) Shower with Aquacel dressing in place-if Aquacel integrity compromised, remove and apply dry sterile dressing and notify Orthopedist. DO NOT SHOWER unless Orthopedists approves without Aquacel dressing CONTACT THE OFFICE FOR ANY CHANGE IN YOUR CONDITION (for example-fever greater than 102 degrees, excessive bleeding from operative site, purulent drainage, severe swelling or pain) GO TO THE EMERGENCY ROOM IF THERE IS A MEDICAL EMERGENCY Hip Precautions: * Keep a rolled towel under affected heel while in bed or chair (to keep knee in extension) * Dependent upon approach: * Posterior - do not cross legs; do not sit on low chairs or toilets. * If you have any questions, please do not hesitate to call the office - . Referrals: Jd King MD [Staff Physician] - Disposition: [facility]NS/HOME HEALTH CARE - Home Medications Comprehensive Discharge Medication List: Ambulatory Orders Folic Acid - 2 mg PO DAILY 07/27/12 Multivitamin with Minerals [Multiple Vitamin] 1 each PO DAILY 07/27/12 Rosuvastatin Calcium [Crestor] 10 mg PO DAILY 07/27/12 Budesonide/Formeterol Fumarate [SYMBICORT 80/4.5mcg -] 1 inh PO BID PRN Rivaroxaban [Xarelto] 20 mg PO DAILY 06/12/18 Zolpidem Tartrate [Ambien] 10 mg PO HS PRN 06/12/18 Amlodipine Besylate [Norvasc -] 5 mg PO DAILY 01/09/19 Fluticasone/Umeclidin/Vilanter [Trelegy Ellipta 100-62.5-25] 1 each IH DAILY Mesalamine [Lialda] 1.2 gm PO DAILY 01/09/19 Naproxen Sodium [Aleve] 220 mg PO TID 01/09/19 Phentermine HCl 37.5 mg PO DAILY 01/09/19 Propranolol HCl [Propranolol HCl ER] 120 mg PO DAILY 01/09/19 Sennosides/Docusate Sodium [Senna Plus Tablet] 1 each PO BID 01/09/19 Silodosin [Rapaflo] 8 mg PO DAILY 01/09/19 Tofacitinib Citrate [Xeljanz] 10 mg PO BID 01/09/19 Oxycodone HCl/Acetaminophen [Percocet 5-325 mg Tablet -] 1 - 2 tab PO Q6H #50 tab MDD 8 01/22/19
[2019-01-24 08:28] LABS: ALBUMIN 2.8 g/dl (3.4-5.0); BILIRUBIN,TOTAL 0.6 mg/dl (0.2-1); CALCIUM 7.6 mg/dl (8.5-10); CREATININE 0.6 mg/dl (0.55-1.3); TOT PROT 5.5 g/dl (6.4-8.2)
[2019-01-24] MEDS ORDERED: BENZOCAINE/MENTH/CETYLPYRD CL 1 EACH LOZENGE MM PRN (08:32)
[2019-01-24] MEDS: oxyCODONE HCL 5 MG TABLET PO PRN (08:50)
[2019-01-24] MEDS: TAMSULOSIN HCL 0.4 MG CAP PO SCH (08:51)
[2019-01-24] MEDS ORDERED: PT OWN MED DRAWER 7, Y5N ONE (09:35)
[2019-01-24] MEDS: amLODIPine BESYLATE 5 MG TABLET (FP) PO SCH (10:09)
[2019-01-24] MEDS: POLYETHYLENE GLYCOL 3350 119 GM BTL PO SCH (10:09)
[2019-01-24] MEDS: RIVAROXABAN 10 MG TABLET PO SCH (10:10)
[2019-01-24] MEDS: BUDESONIDE/FORMETEROL FUMARATE 80/4.5 mcg INHALER IH SCH (10:10)
[2019-01-24] MEDS: SENNOSIDES/DOCUSATE COMBO (SENNA PLUS) TABLET (UD) PO SCH (10:10)
[2019-01-24] MEDS: PANTOPRAZOLE 40 MG TABLET (FP) PO SCH (10:10)
[2019-01-24] MEDS: MULTIVITAMINS THER W-MINERALS COMBO TABLET (FP) PO SCH (10:10)
--- NOTE | 2019-01-25 16:03 | PATH ---
Surgical Pathology Report Patient Name: JD PETERS Med. Rec. #: [id number] /Age/Gender: 1955 (Age: 63) / M Account: [id number] Location: [facility] MED-SURG Taken: 01/22/2019 Received: 01/22/2019 Reported: 01/25/2019 Physicians: Jd King M.D. Specimen(s) Received LEFT FEMORAL HEAD Clinical History Left hip osteoarthritis Final Diagnosis FEMORAL HEAD, LEFT, TOTAL HIP REPLACEMENT: DEGENERATIVE JOINT DISEASE. Electronically Signed Kristine Vance M.D. Gross Description Received in formalin, labeled "left femoral head," is a 4.7 x 4.6 x 4.1 cm. femoral head with a 1.4 cm in length portion of femoral neck attached. The margin of resection is smooth. There is a 4.5 cm greatest dimension area of eburnation present. The remaining articular surface is goff-yellow and diffusely granular. The underlying trabecular bone is yellow and hard. A retail service representative section is submitted in one cassette, following decalcification. /01/24/2019 [facility]01/24/2019
== END 2019-01-24 13:30 | disposition home health service (06) | DRG 470 ==
LOC: FM/S 10:25
PROVIDERS: ADMIT Orthopaedic Surgery; ATTEND Orthopaedic Surgery
PROC: 8E0YXCZ Robotic Assisted Procedure of Lower Extremity (ICD-10-PCS; 2019-01-22)
PROC: 0SRB03A Replacement of Left Hip Joint with Ceramic Synthetic Substitute, Uncemented, Open Approach (ICD-10-PCS; principal; 2019-01-22 12:40)
DX: M16.12 Unilateral primary osteoarthritis, left hip (principal); E66.9 Obesity, unspecified; Z86.718 Personal history of other venous thrombosis and embolism; N40.0 Benign prostatic hyperplasia without lower urinary tract symptoms; I10 Essential (primary) hypertension; J44.9 Chronic obstructive pulmonary disease, unspecified; Z68.30 Body mass index [BMI] 30.0-30.9, adult; M06.9 Rheumatoid arthritis, unspecified; G47.00 Insomnia, unspecified; K59.00 Constipation, unspecified
CPT/HCPCS: 36415; 71045-TC-FY; 73502-TC-LT-FY; 80053; 83036; 83735; 84100; 85027; 88305-TC; 88311-TC; 94760; 97116-GP; 97163-GP; J0131